=== PATIENT | female | born 1975 | race Caucasian/White ===

== ENCOUNTER 2017-08-07 10:17 | Emergency (ER) | payer MEDICAID ==
[~2017-08-07] VITALS: Ht 160 cm; Wt 71.7 kg
[2017-08-07 10:28] VITALS: BP 130/78
--- NOTE | 2017-08-07 10:36 | NUR ---
PT RETURNED TO LOBBY WAITING FOR MSE.
--- NOTE | 2017-08-07 11:13 | NUR ---
PATIENT PRESENTS TO ED WITH C/O N/V AND EYE IRRITATION SINCE YESTERDAY. SKIN IS PINK/WARM/DRY; AAOX4 WITH EVEN AND STEADY GAIT; LUNGS CLEAR BL; HR EVEN AND REGULAR; PT DENIES ANY FEVER, CP, SOB, OR COUGH AT THIS TIME; PATIENT STATES PAIN OF 0/10 AT THIS TIME;PATIENT POSITIONED FOR COMFORT; HOB ELEVATED; BEDRAILS UP X2; BED DOWN. ER MD MADE AWARE OF PT STATUS.
[2017-08-07] MEDS ORDERED: ONDANSETRON 4 MG ODT PO ONE (11:30)
--- NOTE | 2017-08-07 11:54 | NUR ---
PO CHALLENGE DONE;NO NAUSEA/VOMITTING NOTED;
--- NOTE | 2017-08-07 11:57 | NUR ---
PT TRANSFERED TO THE LOBBY,
[2017-08-07 12:04] LABS: BASOPHILS # (AUTO) 0.2 K/uL (0.00-0.22); BASOPHILS % (AUTO) 4.4 % (0.0-2.0); EOSINOPHILS # (AUTO) 0.1 K/uL (0-0.4); EOSINOPHILS % (AUTO) 1.7 % (0.0-4.0); HEMATOCRIT 42.3 % (36-48); HEMOGLOBIN 13.9 g/dL (12.0-16.0); LYMPHOCYTES # (AUTO) 1.5 K/uL (2.5-16.5); LYMPHOCYTES % (AUTO) 30.1 % (20.5-51.1); MEAN CORPUSCULAR HEMOGLOBIN 29 pg (27-31); MEAN CORPUSCULAR HGB CONC 33 g/dL (33-37); MEAN CORPUSCULAR VOLUME 87 fL (80-94); MONOCYTES # (AUTO) 0.5 K/uL (0.8-1.0); MONOCYTES % (AUTO) 9.3 % (1.7-9.3); NEUTROPHILS # (AUTO) 2.7 K/uL (1.8-7.7); NEUTROPHILS % (AUTO) 54.5 % (42.2-75.2); PLATELET COUNT (AUTO) 242 K/uL (140-450); RED BLOOD CELL COUNT(AUTO) 4.87 MIL/uL (4.20-5.40); RED CELL DISTRIBUTION WIDTH 12.9 % (11.6-13.7)
[2017-08-07 12:10] LABS: APPEARANCE,URINE CLEAR (CLEAR); BILIRUBIN,URINE 1+ (NEGATIVE); BLOOD, URINE 3+ (NEGATIVE); COLOR,URINE YELLOW (YELLOW); LEUKOCYTE ESTERASE ,URINE TRACE (NEGATIVE); NITRITE, URINE NEGATIVE (NEGATIVE); PH,URINE 6.5 (5.0-9.0); UGLUCOSE NEGATIVE (NEGATIVE)
[2017-08-07 12:43] LABS: ANION GAP 12.6 (8-16); CREATININE 0.6 mg/dL (0.6-1.3); POTASSIUM 3.6 mmol/L (3.5-5.1)
[2017-08-07 12:48] LABS: ALBUMIN 3.5 g/dL (3.4-5.0); TOTAL BILIRUBIN 1.3 mg/dL (0.0-1.0)
[2017-08-07 13:16] LABS: RBC,URINE 20-50 /HPF (0-5)
[2017-08-07 13:19] VITALS: BP 138/72
--- NOTE | 2017-08-07 13:19 | NUR ---
Patient discharged with v/s stable. Written and verbal after care instructions given and explained. Patient alert, oriented and verbalized understanding of instructions. Ambulatory with steady gait. All questions addressed prior to discharge. ID band removed. Patient advised to follow up with PMD. Rx of zofran and erythromycin given. Patient educated on indication of medication including possible reaction and side effects. Opportunity to ask questions provided and answered.
== END 2017-08-07 13:19 | disposition home or self-care (01) ==
LOC: MED 10:17
DX: B34.9 Viral infection, unspecified (principal); R11.2 Nausea with vomiting, unspecified; H57.9 Unspecified disorder of eye and adnexa
CPT/HCPCS: 36415; 80053; 81001; 81025; 83690; 85025; 87086; 99284; S0119

== ENCOUNTER 2022-09-12 17:18 | Emergency (ER) | payer MEDICAID ==
[~2022-09-12] VITALS: Ht 160 cm; Wt 75.3 kg
[2022-09-12 17:47] VITALS: BP 180/88
[2022-09-12] MEDS ORDERED: HYDROcodone/APAP 7.5/325 MG 1 TAB PO ONE (18:40)
[2022-09-12] MEDS ORDERED: IBUP-2213 PO (19:50)
[2022-09-12] MEDS ORDERED: ACET-8905 PO (19:50)
[2022-09-12] MEDS ORDERED: HYDROcodone/APAP 7.5/325 MG 1 TAB ONE ×2 (20:00→20:03)
--- NOTE | 2022-09-12 20:07 | NUR ---
Patient discharged with v/s stable. Written and verbal after care instructions given and explained. Patient verbalized understanding. Wheel Chair Assisted with steady gait. All questions addressed prior to discharge. Advised to follow up with PMD.
== END 2022-09-12 20:07 | disposition home or self-care (01) ==
LOC: MED 17:18
DX: S82.841A Displaced bimalleolar fracture of right lower leg, initial encounter for closed fracture (principal); R03.0 Elevated blood-pressure reading, without diagnosis of hypertension; X58.XXXA Exposure to other specified factors, initial encounter; Y93.89 Activity, other specified; Y92.89 Other specified places as the place of occurrence of the external cause; Y99.8 Other external cause status
CPT/HCPCS: 29515; 73610; 73630; 99284